=== PATIENT | female | born 1980 | race Caucasian/White ===

== ENCOUNTER 2019-05-06 | Emergency (ER) | payer BC ==
[2019-05-06] MEDS ORDERED: MAXZIDE PO (15:11)
[2019-05-06] MEDS ORDERED: LORAZEPAM0.5 MG PO (15:26)
[2019-05-06] MEDS ORDERED: KEFLEX500 M1 PO (16:34)
[2019-05-06] MEDS ORDERED: BACTROBAN TOP (16:34)
== END 2019-05-06 16:35 | disposition home or self-care (01) ==
DX: S61.211A Laceration without foreign body of left index finger without damage to nail, initial encounter (principal); S61.213A Laceration without foreign body of left middle finger without damage to nail, initial encounter; S61.215A Laceration without foreign body of left ring finger without damage to nail, initial encounter; W26.8XXA Contact with other sharp object(s), not elsewhere classified, initial encounter; Y93.I9 Activity, other involving external motion; Y92.833 Campsite as the place of occurrence of the external cause